=== PATIENT | female | born 1955 | race Caucasian/White ===

== ENCOUNTER → 2020-07-07 | Day surgery (SDC) | payer OTHER ==
[~2020-07-07] MED LIST: AMLODIPINE BESY10 MG PO; ASPIR 8181 MG PO; ATORVASTATIN CA20 MG PO; BIOTIN5000 MCG PO; CBD OIL PO; CYCLOBENZAPRINE10 MG PO; FENTANYL CITRATE/PF 100MCG/2 ML INJ ONE; GLIMEPIRIDE1 MG PO; LISINOPRIL-HCT1 EACH PO; METFORMIN HCL500 MG PO; MIDAZOLAM HCL 2 MG/2 ML VIAL ONE; NORCO 7.5-3251 EACH PO; OR PHACO EYE KIT ONE; OZEMPIC1 MG/0.75 SC; PREOP PHACO EYE KIT ONE; ULTRAM 50MG50 MG PO; VASCEPA1 GM PO; VIT B12 SL; VIT D PO; ZINC SULFATE220 MG PO
[2020-07-07 16:05] VITALS: BP 158/91
== END | disposition home or self-care (01) ==
LOC: OR 11:00
PROVIDERS: ATTEND Ophthalmology
DX: H26.9 Unspecified cataract (principal); E11.9 Type 2 diabetes mellitus without complications; D69.6 Thrombocytopenia, unspecified; I10 Essential (primary) hypertension; E78.5 Hyperlipidemia, unspecified; E55.9 Vitamin D deficiency, unspecified; Z01.812 Encounter for preprocedural laboratory examination; Z11.59 Encounter for screening for other viral diseases; Z79.84 Long term (current) use of oral hypoglycemic drugs; Z79.82 Long term (current) use of aspirin; Z86.73 Personal history of transient ischemic attack (TIA), and cerebral infarction without residual deficits
CPT/HCPCS: 36415; 66984; 82948; J2250; J3010; U0002; V2632

== ENCOUNTER 2023-01-03 17:25 | Emergency (ER) | payer OTHER ==
[~2023-01-03] VITALS: Ht 154.9 cm; Wt 87.1 kg
[~2023-01-03 17:25] MED LIST changes: -FENTANYL CITRATE/PF 100MCG/2 ML INJ ONE; -MIDAZOLAM HCL 2 MG/2 ML VIAL ONE; -OR PHACO EYE KIT ONE; -PREOP PHACO EYE KIT ONE
[2023-01-03 19:59] VITALS: BP 156/87
== END 2023-01-03 20:00 | disposition home or self-care (01) ==
LOC: ER 17:34
DX: M79.89 Other specified soft tissue disorders (principal); R60.9 Edema, unspecified; I10 Essential (primary) hypertension; E11.9 Type 2 diabetes mellitus without complications; E78.5 Hyperlipidemia, unspecified; Z86.73 Personal history of transient ischemic attack (TIA), and cerebral infarction without residual deficits
CPT/HCPCS: 93971; 99283